=== PATIENT | male | born 1995 | race American Indian/Alaskan Native ===

== ENCOUNTER 2017-06-16 13:13 | Emergency (ER) | payer OTHER ==
[2017-06-16] MEDS ORDERED: NACL 0.9% IR ONE (15:21)
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
[2017-06-16] MEDS ORDERED: XYLOCAINE 1%/ EPI 1:100,000 INFILTRATI NR (16:00)
[2017-06-16] MEDS ORDERED: TORADOL IM ONE (16:40)
[2017-06-16 17:41] VITALS: BP 143/74
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
== END 2017-06-16 17:42 | disposition home or self-care (01) ==
LOC: ED 13:13
DX: S41.112A Laceration without foreign body of left upper arm, initial encounter (principal); F17.210 Nicotine dependence, cigarettes, uncomplicated; W45.8XXA Other foreign body or object entering through skin, initial encounter; Y93.89 Activity, other specified; Y92.89 Other specified places as the place of occurrence of the external cause; Y99.8 Other external cause status
CPT/HCPCS: 12032; 96372; 99282; J1885

== ENCOUNTER 2017-06-25 17:28 | Emergency (ER) | payer SELFPAY ==
[2017-06-25 18:17] VITALS: BP 114/77
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
== END 2017-06-25 22:45 | disposition home or self-care (01) ==
LOC: ED 17:28
DX: S41.112D Laceration without foreign body of left upper arm, subsequent encounter (principal)